=== PATIENT | female | born 1975 | race Caucasian/White ===

== ENCOUNTER → 2019-01-18 | Outpatient (CLI) | payer OTHER | LOC: RAD 14:38 | DX: Z12.31 Encounter for screening mammogram for malignant neoplasm of breast (principal) ==

== ENCOUNTER → 2019-02-01 | Outpatient (CLI) | payer OTHER | LOC: ULTRA 15:16 | DX: N83.202 Unspecified ovarian cyst, left side (principal) ==

== ENCOUNTER → 2019-05-06 | Outpatient (CLI) | payer OTHER | LOC: ULTRA 09:54 | DX: K76.0 Fatty (change of) liver, not elsewhere classified (principal); R16.2 Hepatomegaly with splenomegaly, not elsewhere classified ==

== ENCOUNTER 2020-03-03 11:16 | Emergency (ER) | payer OTHER ==
[~2020-03-03] VITALS: Ht 180.3 cm; Wt 95.3 kg
[2020-03-03 14:29] LABS: ABSOLUTE NEUTROPHILS 3.1 thou/uL (1.4-8.2); BASOPHILS 0.7 % (0.0-2.0); HEMATOCRIT 41.7 % (37.0-47.0); HEMOGLOBIN 14.2 gm/dL (12.0-15.0); LYMPHOCYTES 24.4 % (24.0-44.0); MCH 33.9 pg (26.0-34.0); MCHC 34.1 g/dL (28.0-37.0); MCV 99.5 fL (80.0-100.0); MONOCYTES 7.5 % (1.0-8.0); PLATELET COUNT 114 thou/uL (150-400); POLYS 65.4 % (36.0-66.0); RBC 4.19 mil/uL (4.20-5.00); RDW 14.5 % (10.5-14.5); WBC 4.7 thou/uL (4.0-11.0)
[2020-03-03] MEDS ORDERED: SERTRALINE HCL50 MG PO (14:36)
[2020-03-03] MEDS ORDERED: TRAZODONE HCL50 MG PO (14:36)
[2020-03-03] MEDS ORDERED: BUSPIRONE HCL10 MG PO (14:36)
[2020-03-03 14:40] LABS: CALCIUM 8.7 mg/dL (8.5-10.1); CREATININE 0.7 mg/dL (0.6-1.0)
[2020-03-03 14:46] LABS: ALBUMIN 3.7 g/dL (3.4-5.0); TOTAL BILIRUBIN 0.5 mg/dL (0.2-1.0); TOTAL PROTEIN 7.8 g/dL (6.4-8.2)
[2020-03-03] MEDS ORDERED: PROMETH-CODEIN 65 ML PO (16:11)
[2020-03-03 16:30] VITALS: BP 153/91
== END 2020-03-03 16:31 | disposition home or self-care (01) ==
LOC: ER 11:16
PROVIDERS: Physician Assistant
DX: R05 Cough (principal); Z20.828 Contact with and (suspected) exposure to other viral communicable diseases; M79.18 Myalgia, other site; R19.7 Diarrhea, unspecified; Z79.899 Other long term (current) drug therapy

== ENCOUNTER 2020-03-16 09:58 | Emergency (ER) | payer OTHER ==
[~2020-03-16] VITALS: Ht 182.9 cm; Wt 97.5 kg
[~2020-03-16 09:58] MED LIST: BUSPIRONE HCL10 MG PO; PROMETH-CODEIN 65 ML PO; SERTRALINE HCL50 MG PO; TRAZODONE HCL50 MG PO
[2020-03-16] MEDS ORDERED: NAPROSYN500 MG PO (11:48)
[2020-03-16 12:20] VITALS: BP 115/74
== END 2020-03-16 12:25 | disposition home or self-care (01) ==
LOC: ER 09:58
DX: S73.002A Unspecified subluxation of left hip, initial encounter (principal); M25.562 Pain in left knee; Z79.899 Other long term (current) drug therapy; X58.XXXA Exposure to other specified factors, initial encounter; Y93.89 Activity, other specified; Y92.89 Other specified places as the place of occurrence of the external cause; Y99.8 Other external cause status

== ENCOUNTER → 2020-04-10 | Outpatient (CLI) | payer OTHER ==
[~2020-04-10] VITALS: Ht 180.3 cm; Wt 99.8 kg
[~2020-04-10] MED LIST changes: +NAPROSYN500 MG PO; +PROAIR HFA8.5 GM INH; +TUMS300 MG PO
== END | disposition home or self-care (01) ==
LOC: OR 07:32 → LAB 08:00 → OR 04-12 07:36 → EDSTATUS 04-12 14:01 → OR 04-12 15:21
PROVIDERS: ATTEND Orthopaedic Surgery Sports Medicine
DX: Z01.812 Encounter for preprocedural laboratory examination (principal); Z20.828 Contact with and (suspected) exposure to other viral communicable diseases; M71.562 Other bursitis, not elsewhere classified, left knee; F32.9 Major depressive disorder, single episode, unspecified; F41.9 Anxiety disorder, unspecified; J45.909 Unspecified asthma, uncomplicated; K21.9 Gastro-esophageal reflux disease without esophagitis; Z87.891 Personal history of nicotine dependence; Z98.890 Other specified postprocedural states; Z79.899 Other long term (current) drug therapy

== ENCOUNTER → 2020-05-05 | Outpatient (CLI) | payer OTHER | LOC: LAB 08:53 | PROVIDERS: ATTEND Orthopaedic Surgery Sports Medicine | DX: Z01.812 Encounter for preprocedural laboratory examination (principal); Z20.828 Contact with and (suspected) exposure to other viral communicable diseases ==

== ENCOUNTER 2020-05-10 07:02 | Day surgery (SDC) | payer OTHER ==
[~2020-05-10] VITALS: Ht 182.9 cm; Wt 102.1 kg
[2020-05-10 08:30] VITALS: BP 130/92
[2020-05-10 10:07] VITALS: BP 130/92
--- NOTE | 2020-05-10 19:14 | O ---
[facility] [place] [address] OPERATIVE REPORT Name: YESICA NYE Room #: DEP [facility].#: [id number] Admission: 05/10/20 Attend Phys: Mor Washburn MD Discharge: 05/10/20 Date of : 73 Report #: [id number] THIS REPORT FOR: cc: Ely Lopez,Ely Washburn,Mor Robledo MD ~ CC: Ely Washburn DATE OF SERVICE: 05/10/2020 SERVICE: Orthopedics. FACILITY: [place]. SURGEON: Mor Washburn MD [employer] ARCHITECT: Urmila Fontanez. PREOPERATIVE DIAGNOSIS: Left knee pain with prepatellar bursitis and bursal loose body. POSTOPERATIVE DIAGNOSIS: Left knee pain with prepatellar bursitis and bursal loose body. PROCEDURE: Left knee open prepatellar bursectomy with bursal loose body removal. COMPLICATIONS: None. DRAINS: None. SPECIMENS: Loose body and bursitis sent for pathology. ANESTHESIA: MAC with general. FINDINGS: Hypertrophic bursitis with granulation tissue and a loose body removed. HISTORY: The patient is a 45-year-old female with history of anterior knee pain and palpable mobile very painful loose body within the prepatellar bursa and it caused bursitis as well. She was indicated for surgical treatment because she had failed conservative measures. Risks, benefits, alternatives, and indication of surgery discussed with her in detail. Risks include but not limited to pain, bleeding, infection, injury to nerves or blood vessels, persistent pain despite surgical intervention, failure, recurrence, need for further surgery as well as [facility] [address] [place] [address] OPERATIVE REPORT Name: YESICA NYE Room #: DEP [facility] M.R.#: [id number] Admission: 05/10/20 Attend Phys: Mor Washburn MD Discharge: 05/10/20 Date of : 73 Report #: [id number] complications related to anesthesia. PROCEDURE IN DETAIL: After left lower extremity was correctly identified in the preoperative holding area as the operative extremity, the patient was taken to the operating room where monitored anesthetic care was induced without complication. She was padded appropriately. Tourniquet was applied to the left leg, but we did not use it. Left leg was prepped and draped in standard sterile fashion. Timeout procedure performed. A 2 cm incision was made based over the prepatellar bursal swelling. Dissection was taken down with full thickness skin flaps mobilized in the prepatellar bursa, which was excised sharply and then the loose body beneath the bursa could be seen that was partially mobile and fixed to the periosteum of the patella. This was oval in shape with the PEEK anteriorly. It was a source of the pain. This measured approximately 1 cm x 7 mm in size and it was removed in bulk without difficulty. The rongeur was used to remove the residual bursitis. Wound was copiously irrigated. We used a local anesthetic prior to the incision in subcutaneous fashion with a mixture of 0.25% Marcaine and 1% lidocaine and then additional local anesthetic was infiltrated in the skin around the incision for postoperative pain control. Deep 3-0 Monocryl stitch followed by running subcuticular 3-0 Monocryl stitch and Dermabond was applied with the knee flexed. Sterile dressing was applied. The patient was awakened from anesthesia and taken to recovery room in stable condition. No complications. All counts were correct. <ELECTRONICALLY SIGNED> By: Mor Washburn MD 05/10/20 1914 1003 [id number] Mro Washburn MD /nt
--- NOTE | 2020-05-12 17:07 | PATH ---
[facility] [place] [address] PATHOLOGY RPT PROCEDURE Name: CASSY BOCANEGRAA Room #: DEP [facility] M.R.#: [id number] Admission: 05/10/20 Date of : 73 Discharge: 05/10/20 Report #: [id number] Path Case #: [id number] [facility] Accession Number: [id number] . 01 Material submitted: . knee - LEFT PREPATELLAR BURSA. Modifiers: left . 01 Clinical history: . OTHER BURSITIS OF KNEE, LEFT KNEE, UNILATERAL PRIMARY OSTEOARTHRITIS . 02 Diagnosis: Left prepatellar bursa, bursectomy: - Fragments comprised of reactive chondro-osseous tissue as well as fibrovascular connective tissue. (IUV:laurent; 05/12/2020) QMS 05/12/2020 1423 Local . 02 Electronically signed: . Catherine Thorne MD, Pathologist NPI- [id number] . 01 Gross description: . The specimen is received in formalin, labeled "Yesica Bocanegra, left prepatellar bursa" and consists of a segment of membranous walden-adler tissue with attached yellow lobulated tissue measuring 2.3 x 2.0 x 0.6 cm. Also received is a segment of cartilaginous bone measuring 1.4 x 0.8 x 0.5 cm. The bone is submitted in A1 following decalcification and the remainder of the specimen in A2. (SDY; 05/11/2020) SYU/SYU 05/12/2020 [facility]2 Local . 02 Pathologist provided ICD-10: M70.52, M17.10 . 02 CPT . 949118, 938340 Specimen Comment: A courtesy copy of this report has been sent to [phone], [phone] Specimen Comment: [id number] Specimen Comment: Report sent to / DR MERINO Performed at: 01 [place] [id number] [address] [id number] MD Nicholas Camacho MD Phone: [phone] Performed at: [address] [id number] [address] [address] PATHOLOGY RPT PROCEDURE Name: YESICA BOCANEGRA Room #: DEP [facility] M.R.#: [id number] Admission: 05/10/20 Date of : 73 Discharge: 05/10/20 Report #: [id number] Path Case #: [id number] MD Catherine Thorne MS Phone: [phone]
== END 2020-05-10 10:55 | disposition home or self-care (01) ==
LOC: OR 07:02 → TBA 07:07 → OR 07:07 → TBA 10:55 → OR 10:55
PROVIDERS: ATTEND Orthopaedic Surgery Sports Medicine
DX: M25.562 Pain in left knee (principal); M70.42 Prepatellar bursitis, left knee; M23.42 Loose body in knee, left knee; M17.12 Unilateral primary osteoarthritis, left knee; J45.909 Unspecified asthma, uncomplicated; F32.9 Major depressive disorder, single episode, unspecified; F41.9 Anxiety disorder, unspecified; K21.9 Gastro-esophageal reflux disease without esophagitis; Z98.890 Other specified postprocedural states; Z79.899 Other long term (current) drug therapy; Z87.891 Personal history of nicotine dependence; Z85.828 Personal history of other malignant neoplasm of skin
CPT/HCPCS: 50010; 50101; 50386; 54118; 56527; 57091; 57103; 57180; 62110; 62850; 70005

== ENCOUNTER → 2020-05-25 | Outpatient (CLI) | payer OTHER | LOC: LAB 15:15 | PROVIDERS: ATTEND Obstetrics & Gynecology | DX: Z01.419 Encounter for gynecological examination (general) (routine) without abnormal findings (principal) ==

== ENCOUNTER → 2020-07-12 | Outpatient (CLI) | payer OTHER | LOC: RAD 11:45 | PROVIDERS: ATTEND Nurse Practitioner | DX: Z12.31 Encounter for screening mammogram for malignant neoplasm of breast (principal) ==

== ENCOUNTER 2020-08-04 11:45 | Emergency (ER) | payer OTHER ==
[~2020-08-04] VITALS: Ht 180.3 cm; Wt 99.8 kg
[2020-08-04 13:09] LABS: ABSOLUTE NEUTROPHILS 4.7 thou/uL (1.4-8.2); BASOPHILS 1.1 % (0.0-2.0); EOSINOPHILS 1.6 % (0.0-3.0); HEMATOCRIT 40.4 % (37.0-47.0); HEMOGLOBIN 13.6 gm/dL (12.0-15.0); LYMPHOCYTES 29.9 % (24.0-44.0); MCH 32.2 pg (26.0-34.0); MCHC 33.8 g/dL (28.0-37.0); MCV 95.4 fL (80.0-100.0); MONOCYTES 4.7 % (1.0-8.0); PLATELET COUNT 190 thou/uL (150-400); POLYS 62.7 % (36.0-66.0); RBC 4.24 mil/uL (4.20-5.00); RDW 13.1 % (10.5-14.5); WBC 7.4 thou/uL (4.0-11.0)
[2020-08-04] MEDS ORDERED: WELLBUTRIN XL300 MG PO (13:10)
[2020-08-04 13:15] LABS: CALCIUM 8.8 mg/dL (8.5-10.1); CREATININE 0.7 mg/dL (0.6-1.0)
[2020-08-04 13:21] LABS: ALBUMIN 3.7 g/dL (3.4-5.0); TOTAL BILIRUBIN 0.4 mg/dL (0.2-1.0); TOTAL PROTEIN 7.3 g/dL (6.4-8.2)
[2020-08-04 14:01] LABS: URINE BILIRUBIN NEGATIVE (Negative); URINE BLOOD 2+ (Negative); URINE CLARITY CLEAR; URINE COLOR YELLOW; URINE GLUCOSE-RANDOM* NEGATIVE (Negative); URINE KETONES NEGATIVE (Negative); URINE LEUKOCYTES-REFLEX NEGATIVE (Negative); URINE NITRITE-REFLEX NEGATIVE (Negative); URINE PROTEIN (DIPSTICK) NEGATIVE (Negative); URINE SPECIFIC GRAVITY >= 1.030 (1.005-1.035)
[2020-08-04 14:11] LABS: SQUAMOUS >10 Many /LPF (0-3)
[2020-08-04 14:12] LABS: BACTERIA-REFLEX None Seen /HPF (None Seen); CASTS None Seen /LPF (None Seen); CRYSTALS None Seen /LPF (None Seen); MUCUS >6 Heavy strn/LPF (None Seen); URINE RBC 0-2 Rare /HPF (0-2); URINE WBC-REFLEX 0-5 Rare /HPF (0-5)
[2020-08-04 15:12] VITALS: BP 121/71
[2020-08-04] MEDS ORDERED: PROMETH-CODEIN 65 ML PO (16:15)
[2020-08-04] MEDS ORDERED: FLAGYL500 M1 PO (16:37)
== END 2020-08-04 16:56 | disposition home or self-care (01) ==
LOC: ER 11:45
PROVIDERS: Physician Assistant
DX: N76.0 Acute vaginitis (principal); J02.9 Acute pharyngitis, unspecified; R05 Cough; Z20.828 Contact with and (suspected) exposure to other viral communicable diseases; F32.9 Major depressive disorder, single episode, unspecified; F41.9 Anxiety disorder, unspecified; J45.909 Unspecified asthma, uncomplicated; K21.9 Gastro-esophageal reflux disease without esophagitis; Z79.899 Other long term (current) drug therapy

== ENCOUNTER → 2020-08-14 | Outpatient (CLI) | payer OTHER ==
[~2020-08-14] MED LIST changes: +FLAGYL500 M1 PO; +WELLBUTRIN XL300 MG PO
== END ==
LOC: LAB 12:15
PROVIDERS: ATTEND Nurse Practitioner
DX: Z20.828 Contact with and (suspected) exposure to other viral communicable diseases (principal)